=== PATIENT | female | born 1965 | race Caucasian/White ===

== ENCOUNTER → 2017-01-01 | Outpatient (CLI) | payer MEDICAID | LOC: WI 08:30 | PROVIDERS: ATTEND Family Medicine | DX: Z12.31 Encounter for screening mammogram for malignant neoplasm of breast (principal) | CPT/HCPCS: 77067; G0202 ==

== ENCOUNTER 2017-05-19 10:15 | Day surgery (SDC) | payer MEDICAID ==
[~2017-05-19 10:15] MED LIST: CHONDR SU A NA/HYALUR INTRAOC KIT (SURGICARE) ONE; EPINEPHRINE INJ/PF 1 MG/1 ML AMPULE ONE; KETOROLAC TROMETHAMINE 0.45% 4 DROP/0.4 ML DROPERETTE OD PRN; LACTATED RINGERS 1000 ML IV PRN; LIDOCAINE 0.5% INJ-PF (5 MG/ML) 50 ML SDV SUBCUT PRN; LIDOCAINE 1% INJ-PF (10 MG/ML) 30 ML SDV ONE; TOBRAMYCIN SULFATE/DEXAMETH OPH OINTMENT 3.5 GM ONE
[2017-05-19] MEDS: TETRACAINE HCL 0.5% OPH SOLN 0.6 ML DROPERETTE OD PRN ×3 (10:44→11:18)
[2017-05-19] MEDS: BESIFLOXACIN HCL 0.6% OPH SUSP 5 ML BOTTLE OD PRN ×3 (10:44→11:40)
[2017-05-19] MEDS: TROPICAMIDE 1% OPH SOLN 3 ML OD PRN ×3 (10:44→11:03)
[2017-05-19] MEDS: CYCLOPENTOLATE 0.2%/PHENYLEPHRINE 1% OPH SOLN 2 ML OD PRN ×3 (10:44→11:03)
[2017-05-19] MEDS ORDERED: LIDOCAINE 0.5% INJ-PF (5 MG/ML) 50 ML SDV ONE (10:56)
[2017-05-19] MEDS ORDERED: MIDAZOLAM 2 MG/2 ML INJ ONE (11:02)
[2017-05-19] MEDS ORDERED: FENTANYL CITRATE INJ/PF 100 MCG/2 ML AMPUL ONE (11:02)
== END 2017-05-19 12:35 | disposition home or self-care (01) ==
LOC: SC 10:15
PROVIDERS: ATTEND Ophthalmology
PROC: 08RK3JZ Replacement of Left Lens with Synthetic Substitute, Percutaneous Approach (ICD-10-PCS; principal; 2017-05-19 11:15)
DX: H25.11 Age-related nuclear cataract, right eye (principal); E11.9 Type 2 diabetes mellitus without complications; I10 Essential (primary) hypertension; F17.210 Nicotine dependence, cigarettes, uncomplicated; Z88.2 Allergy status to sulfonamides; Z79.82 Long term (current) use of aspirin; Z79.899 Other long term (current) drug therapy; Z79.1 Long term (current) use of non-steroidal anti-inflammatories (NSAID)
CPT/HCPCS: 82962; 66984; V2630; J2250; J3490 ×6; J0171; J3010; 142

== ENCOUNTER 2017-06-02 08:27 | Day surgery (SDC) | payer MEDICAID ==
[~2017-06-02 08:27] MED LIST changes: -KETOROLAC TROMETHAMINE 0.45% 4 DROP/0.4 ML DROPERETTE OD PRN; +KETOROLAC TROMETHAMINE 0.45% 4 DROP/0.4 ML DROPERETTE OS PRN; -LACTATED RINGERS 1000 ML IV PRN; +LIDOCAINE 0.5% INJ-PF (5 MG/ML) 50 ML SDV ONE; -LIDOCAINE 0.5% INJ-PF (5 MG/ML) 50 ML SDV SUBCUT PRN; +MIDAZOLAM 2 MG/2 ML INJ ONE
[2017-06-02] MEDS: CYCLOPENTOLATE 0.2%/PHENYLEPHRINE 1% OPH SOLN 2 ML OS PRN ×3 (08:42→09:02)
[2017-06-02] MEDS: TROPICAMIDE 1% OPH SOLN 3 ML OS PRN ×3 (08:42→09:02)
[2017-06-02] MEDS: BESIFLOXACIN HCL 0.6% OPH SUSP 5 ML BOTTLE OS PRN ×3 (08:42→09:27)
[2017-06-02] MEDS: TETRACAINE HCL 0.5% OPH SOLN 0.6 ML DROPERETTE OS PRN ×3 (08:43→09:10)
[2017-06-02] MEDS ORDERED: MIDAZOLAM 2 MG/2 ML INJ ONE (09:05)
[2017-06-02] MEDS ORDERED: LIDOCAINE 0.5% INJ-PF (5 MG/ML) 50 ML SDV SUBCUT PRN (13:33)
[2017-06-02] MEDS ORDERED: LACTATED RINGERS 1000 ML IV PRN (13:34)
== END 2017-06-02 10:10 | disposition home or self-care (01) ==
LOC: SC 08:27
PROVIDERS: ATTEND Ophthalmology
PROC: 08RK3JZ Replacement of Left Lens with Synthetic Substitute, Percutaneous Approach (ICD-10-PCS; principal; 2017-06-02 09:15)
DX: H25.12 Age-related nuclear cataract, left eye (principal); Z98.41 Cataract extraction status, right eye; F17.210 Nicotine dependence, cigarettes, uncomplicated; E11.9 Type 2 diabetes mellitus without complications; I10 Essential (primary) hypertension; F41.9 Anxiety disorder, unspecified; M46.90 Unspecified inflammatory spondylopathy, site unspecified; M19.90 Unspecified osteoarthritis, unspecified site; Z79.82 Long term (current) use of aspirin; Z79.1 Long term (current) use of non-steroidal anti-inflammatories (NSAID); Z79.899 Other long term (current) drug therapy; Z88.2 Allergy status to sulfonamides; Z86.14 Personal history of Methicillin resistant Staphylococcus aureus infection
CPT/HCPCS: 66984; 82962; V2630; J2250; J3490 ×6; J0171; 142

== ENCOUNTER 2018-03-17 23:28 | Inpatient (IN) | payer MEDICAID ==
[2018-03-18] MEDS ORDERED: OXYCODONE-ACETAMINOPHEN 5-325 MG TABLET PO ONE (00:51)
[2018-03-18] MEDS ORDERED: ONDANSETRON 4 MG TAB.RAPDIS PO ONE (00:51)
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
--- NOTE | 2018-03-18 02:47 | RADIOLOGY REPORT (SQ) ---
EXAM DESCRIPTION: XR FOOT 3 OR MORE VIEWS COMPLETED DATE/TME: 03/18/2018 00:50 CLINICAL HISTORY: 53 years Female, fall, pain COMPARISON: None. Findings: Moderate osteoarthritis of the left first interphalangeal joint, small plantar fascial enthesophyte, small osteophyte of the medial cuneiform medially at the navicular-cuneiform joint.. Bones, joints, and soft tissues of the XR L FOOT 4 VIEWS appear otherwise intact. IMPRESSION: No acute findings. Mild/moderate osteoarthritis medially.
--- NOTE | 2018-03-18 02:52 | RADIOLOGY REPORT (SQ) ---
EXAM DESCRIPTION: XR TIBIA FIBULA 2 VIEWS COMPLETED DATE/TME: 03/18/2018 00:50 CLINICAL HISTORY: 53 years, Female, fall, pain COMPARISON: None. NUMBER OF VIEWS: 4 LIMITATIONS: None. FINDINGS: Mild deformity of the proximal diametaphysis of the left fibula likely due to prior injury. No associated swelling. No knee effusion. Moderate fragmented osteophytes of the medial and lateral left knee compartments, 0.3 cm ossicular spotty at the lateral knee compartment, 0.3 cm avulsive fragment of the left lateral malleolus. No joint effusion of the knee. IMPRESSION: No acute findings. Mild likely chronic deformity of the proximal left fibula.
[2018-03-18 02:55] LABS: HEMATOCRIT 45.9 % (36.0-47.0); HEMOGLOBIN 15.5 g/dL (12.0-15.5); MEAN CORPUSCULAR HEMOGLOBIN 32.2 pg (27.0-33.4); MEAN CORPUSCULAR HGB CONC 33.7 g/dL (32.0-36.0); MEAN CORPUSCULAR VOLUME 96 fl (80-97); PLATELET COUNT 196 10^3/uL (150-450); RED CELL DISTRIBUTION WIDTH 12.9 % (11.5-14.0); WHITE BLOOD COUNT 22.9 10^3/uL (4.0-10.5)
[2018-03-18 03:05] LABS: ALANINE AMINOTRANSFERASE 14 U/L (9-52); ALBUMIN 5.2 g/dL (3.5-5.0); ALKALINE PHOSPHATASE 72 U/L (38-126); ANION GAP 19 (5-19); ASPARTATE AMINO TRANSFERASE 31 U/L (14-36); BILIRUBIN,DIRECT 0.3 mg/dL (0.0-0.4); BILIRUBIN,TOTAL 0.6 mg/dL (0.2-1.3); BLOOD UREA NITROGEN 13 mg/dL (7-20); C-REACTIVE PROTEIN 50.5 mg/L (<10.0); CALCIUM 10.6 mg/dL (8.4-10.2); CARBON DIOXIDE 25 mmol/L (22-30); CHLORIDE 105 mmol/L (98-107); GLUCOSE 145 mg/dL (75-110); POTASSIUM 3.5 mmol/L (3.6-5.0); TOTAL PROTEIN 9.6 g/dL (6.3-8.2)
[2018-03-18 03:13] LABS: ABSOLUTE LYMPHOCYTES# (MANUAL) 2.1 10^3/uL (0.5-4.7); ABSOLUTE MONOCYTES # (MANUAL) 1.4 10^3/uL (0.1-1.4); ABSOLUTE NEUTROPHILS# (MANUAL) 19.5 10^3/uL (1.7-8.2); BASOPHILS % (MANUAL) 0 % (0-2); EOSINOPHILS % (MANUAL) 0 % (0-6); LYMPHOCYTES % (MANUAL) 9 % (13-45); MONOCYTES % (MANUAL) 6 % (3-13); PLATELET COMMENT ADEQUATE; RBC MORPHOLOGY COMMENT NORMO-CYTIC/CHROMIC; SEGMENTED NEUTROPHILS % (MAN) 85 % (42-78); TOTAL CELLS COUNTED 100
[2018-03-18 03:30] LABS: ERYTHROCYTE SEDIMENTATION RATE 63 mm/hr (0-30)
[2018-03-18] MEDS ORDERED: NICOTINE 21 MG/24 HR PATCH.TD24 TD ONE (03:44)
[2018-03-18] MEDS ORDERED: CEFTRIAXONE 1 GM/D5W RTU 1 GM/50 ML RTUPB IV ONE (03:45)
[2018-03-18] MEDS ORDERED: VANCOMYCIN HCL INJ 1000 MG VIAL IV ONE (03:45)
[2018-03-18] MEDS ORDERED: CEFTRIAXONE INJ 1000 MG VIAL IV ONE (03:58)
[2018-03-18 04:34] LABS: APPEARANCE,URINE CLOUDY; BILIRUBIN,URINE NEGATIVE (NEGATIVE); COLOR,URINE AMBER; GLUCOSE, URINE >=500 mg/dL (NEGATIVE); KETONES,URINE TRACE mg/dL (NEGATIVE); LEUKOCYTE ESTERASE,URINE MODERATE (NEGATIVE); NITRITE,URINE NEGATIVE (NEGATIVE); PROTEIN,URINE >=500 mg/dL (NEGATIVE); URINE SPECIFIC GRAVITY 1.023
[2018-03-18] MEDS: NORMAL SALINE 1000 ML 1,000 ML IV PRN ×4 (05:01→23:29)
[2018-03-18] MEDS ORDERED: ALPRAZOLAM 0.5 MG TABLET PO ONE (05:23)
[2018-03-18] MEDS ORDERED: ACETAMINOPHEN 325 MG TABLET PO PRN (06:25)
[2018-03-18] MEDS ORDERED: IPRATROPIUM/ALBUTEROL 0.5-2.5 MG/3 ML AMPUL NEB PRN (06:25)
[2018-03-18] MEDS ORDERED: ONDANSETRON HCL INJ/PF 4 MG/2 ML SDV IV PRN (06:25)
[2018-03-18 06:36] LABS: VENOUS BLOOD BASE EXCESS -1.9 mmol/L; VENOUS BLOOD PCO2 39.7 mmHg (35-63); VENOUS BLOOD PH 7.38 (7.30-7.42)
--- NOTE | 2018-03-18 06:56 | PDOC H&P ---
History of Present Illness Admission Date/PCP: 03/18/18 05:14 VANCE SMITH DO Patient complains of: Fever, chills, left toe pain History of Present Illness: KASSIDY NESBTIT is a 53 year old female with past medical history of diabetes not currently on insulin, dyslipidemia, PVD who is active smoker presents with left middle toe pain as well as fever and chills. Patient reports that she stubbed her foot a few days ago and has noticed left toe pain and some swelling. Patient also reports fever and chills but denies any cough or urinary symptoms are chest pain or abdominal pain. On arrival to emergency room she was afebrile but tachycardic. Her laboratory workup shows white count of 20,000. His lactic acid was 3.8. UA shows UTI with positive leukocyte esterase and WBCs. X-ray of left foot shows changes of arthritis. Patient was given IV antibiotic and was referred to hospital for admission. Past Medical History Cardiac Medical History: Reports: Hyperlipidema, Peripheral Vascular Disease Denies: Coronary Artery Disease, Myocardial Infarction, Hypertension Pulmonary Medical History: Denies: Asthma, Bronchitis, Chronic Obstructive Pulmonary Disease (COPD), Pneumonia, Tuberculosis Neurological Medical History: Denies: Seizures Endocrine Medical History: Reports: Diabetes Mellitus Type 1 - with diabetic neuropathy, Diabetes Mellitus Type 2 - with diabetic neuropathy GI Medical History: Denies: Hepatitis, Hiatal Hernia Musculoskeltal Medical History: Denies: Arthritis Psychiatric Medical History: Reports: Depression Hematology: Denies: Anemia, Sickle Cell Disease Past Surgical History Past Surgical History: Reports: Orthopedic Surgery - LEFT FEMUR compound fx with femoral artery severed, compound pelvic fx, Tonsillectomy Denies: Amputation, Mastectomy, Pacemaker Social History Information Source: Patient Smoking Status: Current Every Day Smoker Frequency of Alcohol Use: None Hx Recreational Drug Use: No Hx Prescription Drug Abuse: No Family History Family History: DM Parental Family History Reviewed: No Children Family History Reviewed: No Sibling(s) Family History Reviewed.: No Medication/Allergy Home Medications: Alprazolam [Xanax] 2 mg PO TID 05/13/17 Aspirin [Aspirin EC] 81 mg PO DAILY 05/13/17 Aspirin/Acetaminophen/Caffeine [Goody's Ex-Str Powder Packet] 1 pkt PO DAILY PRN 05/13/17 Diphenoxylate HCl/Atropine [Lomotil Tablet] 1 each PO ASDIR PRN 05/13/17 Ibuprofen 600 mg PO BID PRN 05/13/17 Loperamide HCl [Imodium A-D] 4 mg PO ASDIR PRN 05/13/17 Meloxicam 15 mg PO DAILY 05/13/17 Oxycodone HCl 15 mg PO QID 05/13/17 Promethazine HCl [Phenergan 25 mg Tablet] 25 mg PO Q6 05/13/17 Allergies/Adverse Reactions: Sulfa (Sulfonamide Antibiotics) Allergy (Unknown, Verified 06/02/17 08:47) given as child,unknown reaction Review of Systems All systems: reviewed and no additional remarkable complaints except as stated Physical Exam Vital Signs: Temp Pulse Resp BP Pulse Ox 99.8 F 118 H 21 H 130/83 H 96 03/18/18 03:57 03/17/18 23:41 03/18/18 06:00 03/18/18 04:01 03/18/18 04:01 Intake & Output 03/16/18 03/17/18 03/18/18 06:59 06:59 06:59 Intake Total 1000 Balance 1000 General appearance: PRESENT: no acute distress, well-developed, well-nourished Head exam: PRESENT: atraumatic, normocephalic Eye exam: PRESENT: conjunctiva pink, EOMI, PERRLA. ABSENT: scleral icterus Mouth exam: PRESENT: moist, tongue midline Neck exam: ABSENT: carotid bruit, JVD, lymphadenopathy, thyromegaly Respiratory exam: PRESENT: clear to auscultation richard. ABSENT: rales, rhonchi, wheezes Cardiovascular exam: PRESENT: RRR, tachycardia. ABSENT: diastolic murmur, rubs , systolic murmur GI/Abdominal exam: PRESENT: normal bowel sounds, soft. ABSENT: distended, guarding, mass, organolmegaly, rebound, tenderness Rectal exam: PRESENT: deferred Gentrourinary exam: ABSENT: ecchymosis, erythema, lacerations, lesions, scrotal swelling, testicular tenderness, urethral discharge, indwelling catheter, other Extremities exam: PRESENT: full ROM. ABSENT: calf tenderness, clubbing, pedal edema Neurological exam: PRESENT: alert, awake, oriented to person, oriented to place , oriented to time, oriented to situation, CN II-XII grossly intact. ABSENT: motor sensory deficit Psychiatric exam: PRESENT: appropriate affect, normal mood. ABSENT: homicidal ideation, suicidal ideation Skin exam: PRESENT: rash - Patient with left middle toe chronic healing wound Results Laboratory Results: 03/18/18 06:20 VBG pH 7.38 VBG pCO2 39.7 VBG HCO3 23.0 VBG Base Excess -1.9 Labs reviewed Impressions: Foot X-Ray 03/18/18 00:50 IMPRESSION: No acute findings. Mild/moderate osteoarthritis medially. Tibia/Fibula X-Ray 03/18/18 00:50 IMPRESSION: No acute findings. Mild likely chronic deformity of the proximal left fibula. Status: Image reviewed by me Assessment & Plan - Diagnosis (1) UTI (urinary tract infection) Qualifiers: Urinary tract infection type: acute cystitis Hematuria presence: without hematuria Qualified Code(s): N30.00 - Acute cystitis without hematuria Is this a current diagnosis for this admission?: Yes Plan: Patient with fever and chills along with leukocytosis and elevated lactic acid with tachycardia; patient has UTI with sepsis. Patient is otherwise hemodynamically stable. Patient will be continued on broad-spectrum antibiotic. Follow-up urine culture and blood culture. (2) Sepsis Qualifiers: Sepsis type: sepsis due to unspecified organism Qualified Code(s): A41.9 - Sepsis, unspecified organism Is this a current diagnosis for this admission?: Yes Plan: Plan as mentioned above. (3) Diabetes 1.5, managed as type 2 Is this a current diagnosis for this admission?: No Plan: We will continue insulin sliding scale (4) Diabetic foot ulcer Is this a current diagnosis for this admission?: Yes Plan: I do not appreciate any signs of infection. Appears to be chronic healing wound. X-rays unremarkable as well. - Time Time Spent: 30 to 50 Minutes - Inpatient Certification Medical Necessity: Need For IV Fluids, Need for IV Antibiotics
[2018-03-18] MEDS ORDERED: DEXTROSE 40% GEL 15 GM TUBE X 2 PO PRN (08:42)
[2018-03-18] MEDS ORDERED: GLUCAGON,HUMAN RECOMB 1 MG INJ IM PRN (08:42)
[2018-03-18] MEDS ORDERED: DEXTROSE 50%-WATER SYRINGE 25 GM/50 ML DOSE IV PRN (08:42)
[2018-03-18] MEDS ORDERED: DEXTROSE 40% GEL 15 GM TUBE PO PRN (08:42)
[2018-03-18] MEDS ORDERED: DEXTROSE 50%-WATER SYRINGE 12.5 GM/25 ML DOSE IV PRN (08:42)
[2018-03-18] MEDS: INSULIN LISPRO 100 UNIT/ML 3 ML VIAL SUBCUT PRN ×3 (09:02→23:42)
[2018-03-18] MEDS ORDERED: VANCOMYCIN HCL INJ 1000 MG VIAL IV SCH (10:00)
[2018-03-18] MEDS: ENOXAPARIN SODIUM INJ 40 MG/0.4 ML DISP.SYRIN SUBCUT SCH (10:19)
[2018-03-18] MEDS: PIPERACILLIN SODIUM/TAZOBACTAM 3.375 GM in NORMAL SALINE 100 ML IV SCH ×2 (13:07→17:57)
--- NOTE | 2018-03-18 14:09 | PDOC PROGRESS REPORT ---
Subjective Progress Note for:: 03/18/18 Reason For Visit: DIABETIC FOOT INFECTION Physical Exam Vital Signs: Temp Pulse Resp BP Pulse Ox 98.3 F 92 14 113/68 99 03/18/18 09:06 03/18/18 11:05 03/18/18 11:05 03/18/18 09:06 03/18/18 11:05 Intake & Output 03/17/18 03/18/18 03/19/18 06:59 06:59 06:59 Intake Total 1000 1473 Balance 1000 1473 Results Laboratory Results: 03/18/18 03/18/18 06:20 06:20 VBG pH 7.38 VBG pCO2 39.7 VBG HCO3 23.0 VBG Base Excess -1.9 Lactic Acid 3.2 H Impressions: Foot X-Ray 03/18/18 00:50 IMPRESSION: No acute findings. Mild/moderate osteoarthritis medially. Tibia/Fibula X-Ray 03/18/18 00:50 IMPRESSION: No acute findings. Mild likely chronic deformity of the proximal left fibula.
[2018-03-18] MEDS: VANCOMYCIN HCL 750 MG in DEXTROSE 5%-WATER 250 ML IV SCH (14:15)
--- NOTE | 2018-03-18 14:40 | Progress Note ---
Provider Note Provider Note: Patient admitted earlier this morning around 5 a.m. by the nuctunist. H&P reviewed and patient seen and evaluated. She has no new complaints at this time , no fever or chills. We will continue management.
[2018-03-18] MEDS ORDERED: PROMETHAZINE HCL 25 MG TABLET PO PRN (19:11)
[2018-03-18] MEDS: GABAPENTIN 300 MG CAPSULE PO SCH (21:09)
[2018-03-18] MEDS: ALPRAZOLAM 0.5 MG TABLET PO SCH (21:09)
[2018-03-18] MEDS: OXYCODONE HCL IR 5 MG TABLET PO SCH (23:30)
[2018-03-19] MEDS: VANCOMYCIN HCL 750 MG in DEXTROSE 5%-WATER 250 ML IV SCH ×2 (01:32→10:31)
[2018-03-19] MEDS: PIPERACILLIN SODIUM/TAZOBACTAM 3.375 GM in NORMAL SALINE 100 ML IV SCH ×4 (02:24→17:41)
[2018-03-19 06:09] LABS: ABSOLUTE BASOPHILS # (AUTO) 0.1 10^3/uL (0.0-0.2); ABSOLUTE EOSINOPHILS # (AUTO) 0.3 10^3/uL (0.0-0.6); ABSOLUTE LYMPHOCYTES (AUTO) 4.1 10^3/uL (0.5-4.7); ABSOLUTE MONOCYTES (AUTO) 0.6 10^3/uL (0.1-1.4); ABSOLUTE NEUT (AUTO) 5.6 10^3/uL (1.7-8.2); BASOPHILS % (AUTO) 0.6 % (0-2); EOSINOPHILS % (AUTO) 3.2 % (0-6); HEMATOCRIT 36.8 % (36.0-47.0); LYMPHOCYTES % (AUTO) 38.2 % (13-45); MEAN CORPUSCULAR HEMOGLOBIN 32.8 pg (27.0-33.4); MEAN CORPUSCULAR HGB CONC 34.4 g/dL (32.0-36.0); MEAN CORPUSCULAR VOLUME 95 fl (80-97); MONOCYTES % (AUTO) 5.8 % (3-13); PLATELET COUNT 134 10^3/uL (150-450); RED BLOOD COUNT 3.86 10^6/uL (3.72-5.28); RED CELL DISTRIBUTION WIDTH 12.8 % (11.5-14.0); SEGMENTED NEUTROPHILS % (AUTO) 52.2 % (42-78); TOTAL CELLS COUNTED % (AUTO) 100 %; WHITE BLOOD COUNT 10.7 10^3/uL (4.0-10.5)
[2018-03-19 06:11] LABS: ANION GAP 10 (5-19); BLOOD UREA NITROGEN 15 mg/dL (7-20); CALCIUM 8.4 mg/dL (8.4-10.2); CARBON DIOXIDE 23 mmol/L (22-30); CHLORIDE 114 mmol/L (98-107); GLUCOSE 143 mg/dL (75-110); POTASSIUM 3.5 mmol/L (3.6-5.0); SODIUM 146.9 mmol/L (137-145)
[2018-03-19 06:15] LABS: VANCOMYCIN,TROUGH 10.2 ug/mL (5.0-20.0)
[2018-03-19] MEDS: OXYCODONE HCL IR 5 MG TABLET PO SCH ×4 (06:27→23:09)
[2018-03-19] MEDS: ALPRAZOLAM 0.5 MG TABLET PO SCH ×3 (06:27→23:04)
[2018-03-19] MEDS: GABAPENTIN 300 MG CAPSULE PO SCH ×3 (06:28→23:03)
[2018-03-19 06:48] LABS: HEMOGLOBIN 12.6 g/dL (12.0-15.5)
[2018-03-19] MEDS: INSULIN LISPRO 100 UNIT/ML 3 ML VIAL SUBCUT PRN ×2 (08:29→17:43)
[2018-03-19] MEDS: MELOXICAM 15 MG TABLET PO SCH (10:34)
[2018-03-19] MEDS: ENOXAPARIN SODIUM INJ 40 MG/0.4 ML DISP.SYRIN SUBCUT SCH (10:37)
[2018-03-19] MEDS ORDERED: VANCOMYCIN HCL 1,000 MG in DEXTROSE 5%-WATER 250 ML IV SCH (14:00)
[2018-03-19] MEDS ORDERED: NICOTINE 14 MG/24 HR PATCH.TD24 TD ONE (18:00)
--- NOTE | 2018-03-19 18:02 | PDOC PROGRESS REPORT ---
Subjective Progress Note for:: 03/19/18 Subjective:: Patient initially presented with fever and chills. She was admitted and treated for possibly urinary tract infection. No acute event overnight. No recurrence of fever chills. She she is concerned about a 2 infection on right foot, at the middle toe. There is no open lesion, wound, erythema or tenderness. She does have a scar on the areawhich appears to be chronic and healing. Reason For Visit: DIABETIC FOOT INFECTION Physical Exam Vital Signs: Temp Pulse Resp BP Pulse Ox 97.9 F 88 16 139/65 H 100 03/19/18 11:31 03/19/18 14:00 03/19/18 11:31 03/19/18 11:31 03/19/18 11:31 Intake & Output 03/18/18 03/19/18 03/20/18 06:59 06:59 06:59 Intake Total 1000 3263 923 Balance 1000 3263 923 Weight 172 lb 9.951 oz General appearance: PRESENT: no acute distress, well-developed, well-nourished Eye exam: PRESENT: conjunctiva pink, EOMI, PERRLA. ABSENT: scleral icterus Neck exam: ABSENT: carotid bruit, JVD, lymphadenopathy, thyromegaly Respiratory exam: PRESENT: clear to auscultation richard. ABSENT: rales, rhonchi, wheezes Cardiovascular exam: PRESENT: RRR. ABSENT: diastolic murmur, rubs, systolic murmur Pulses: PRESENT: normal dorsalis pedis pul Vascular exam: PRESENT: normal capillary refill GI/Abdominal exam: PRESENT: normal bowel sounds, soft. ABSENT: distended, guarding, mass, organolmegaly, rebound, tenderness Rectal exam: PRESENT: deferred Musculoskeletal exam: PRESENT: other - No gross abnormalities on examination of the feet and toes, note of a scab on the plantar aspect of the middle toe on the right foot, there is no erythema, tenderness, open lesion or wound. No signs of infection. No drainage or discharge. Neurological exam: PRESENT: alert, awake, oriented to person, oriented to place , oriented to time, oriented to situation, CN II-XII grossly intact. ABSENT: motor sensory deficit Results Laboratory Results: 03/19/18 05:46 03/19/18 05:46 08/04/18 08/04/18 05:46 05:46 WBC 10.7 H RBC 3.86 Hgb 12.6 D Hct 36.8 MCV 95 MCH 32.8 MCHC 34.4 RDW 12.8 Plt Count 134 L Seg Neutrophils % 52.2 Lymphocytes % 38.2 Monocytes % 5.8 Eosinophils % 3.2 Basophils % 0.6 Absolute Neutrophils 5.6 Absolute Lymphocytes 4.1 Absolute Monocytes 0.6 Absolute Eosinophils 0.3 Absolute Basophils 0.1 Sodium 146.9 H Potassium 3.5 L Chloride 114 H Carbon Dioxide 23 Anion Gap 10 BUN 15 Creatinine 0.48 L Est GFR ( Amer) > 60 Est GFR (Non-Af Amer) > 60 Glucose 143 H Calcium 8.4 Impressions: Foot X-Ray 03/18/18 00:50 IMPRESSION: No acute findings. Mild/moderate osteoarthritis medially. Tibia/Fibula X-Ray 03/18/18 00:50 IMPRESSION: No acute findings. Mild likely chronic deformity of the proximal left fibula. Assessment & Plan - Diagnosis (1) UTI (urinary tract infection) Qualifiers: Urinary tract infection type: acute cystitis Hematuria presence: without hematuria Qualified Code(s): N30.00 - Acute cystitis without hematuria Is this a current diagnosis for this admission?: Yes Plan: Urine culture grew gram-negative rods so far. We will await final results of the culture sensitivity. Discontinue vancomycin and Zosyn. De-escalate to Rocephin. (2) Diabetes mellitus Is this a current diagnosis for this admission?: Yes Plan: Continue insulin sliding scale. (3) Tobacco abuse Is this a current diagnosis for this admission?: Yes Plan: Counseled on smoking cessation. Will add nicotine patches. - Time Time Spent with patient: 25-34 minutes
[2018-03-20] MEDS: GABAPENTIN 300 MG CAPSULE PO SCH (06:20)
[2018-03-20] MEDS: ALPRAZOLAM 0.5 MG TABLET PO SCH ×2 (07:21→13:37)
[2018-03-20] MEDS: OXYCODONE HCL IR 5 MG TABLET PO SCH ×2 (07:21→11:44)
[2018-03-20] MEDS ORDERED: CEFTRIAXONE 1 GM/D5W RTU 1 GM/50 ML RTUPB IV SCH (10:00)
[2018-03-20] MEDS ORDERED: CEFTRIAXONE SODIUM 1,000 MG in DEXTROSE 5%-WATER 50 ML IV SCH (10:00)
[2018-03-20] MEDS ORDERED: NICOTINE 14 MG/24 HR PATCH.TD24 TD SCH (10:00)
--- NOTE | 2018-03-20 11:16 | PDOC DISCHARGE SUMMARY ---
General - Admit/Disc Date/PCP Admission Date/Primary Care Provider: 03/18/18 05:14 VANCE SMITH DO Discharge Date: 03/20/18 - Discharge Diagnosis (1) UTI (urinary tract infection) Is this a current diagnosis for this admission?: Yes (2) Diabetes mellitus Is this a current diagnosis for this admission?: Yes (3) Tobacco abuse Is this a current diagnosis for this admission?: Yes - Additional Information Resuscitation Status: Full Code Discharge Diet: As Tolerated Prescriptions: Ciprofloxacin HCl [Cipro 500 mg Tablet] 500 mg PO BID 5 Days #20 tablet Home Medications: Alprazolam [Xanax] 2 mg PO Q8 03/18/18 Aspirin [Ecotrin 81 mg EC Tablet] 81 mg PO DAILY 03/18/18 Diphenoxylate HCl/Atrop Sulf [Lomotil 2.5 mg Tablet] 2 tab PO QIDP PRN 03/18/18 Gabapentin [Neurontin 300 mg Capsule] 300 mg PO Q8 03/18/18 Meloxicam [Mobic] 15 mg PO DAILY 03/18/18 Ciprofloxacin HCl [Cipro 500 mg Tablet] 500 mg PO BID 5 Days #20 tablet History of Present Illness History of Present Illness: KASSIDY NESBITT is a 53 year old female with past medical history of diabetes not currently on insulin, dyslipidemia, PVD who is active smoker presents with left middle toe pain as well as fever and chills. Patient reports that she stubbed her left foot a 3 days ago and has noticed left middle toe pain. Patient also reports fever and chills but denies any cough or urinary symptoms are chest pain or abdominal pain. On arrival to emergency room she was afebrile but tachycardic. Her laboratory workup shows white count of 20,000. UA shows UTI with positive leukocyte esterase and WBCs. X-ray of left foot shows changes of arthritis. Patient was given IV antibiotic and was admitted for further work-up and management. Hospital Course Hospital Course: Patient was initially admitted for UTI and possible infected wound in the middle toe of the left foot. Upon reexamination, there are no signs of infection, there is no erythema, swelling or tenderness, there is no drainage or open wound. Patient has a scab over healing wound on the plantar aspect of the middle toe on the left foot. It appears to be that the patient sustained a small laceration which has healed but a scab has developed around the area which makes the patient uncomfortable upon stepping or walking. She was initially started on broad-spectrum IV antibiotics. This was the escalated as deemed appropriate. Her urine culture grew Citrobacter which was resistant to a few antibiotics. This was sensitive to Bactrim but patient has allergy to sulfa antibiotics. Her WBC count significantly improved overnight. She did not have recurrence of fever. She will be sent home on oral ciprofloxacin, for 5 more days, to which the isolate is sensitive. Patient was advised to see a manager stars on outpatient basis to help with scab removal as it appears to be the issue making her uncomfortable when she steps on it. She was advised to keep the area clean and not to put pressure on the healing wound so as to hasten wound healing. Physical Exam Vital Signs: Temp Pulse Resp BP Pulse Ox 98.0 F 88 20 163/83 H 100 03/20/18 07:27 03/20/18 07:27 03/20/18 07:27 03/20/18 07:27 03/20/18 07:27 Intake & Output 03/19/18 03/20/18 03/21/18 06:59 06:59 06:59 Intake Total 3263 2138 Balance 3263 2138 Weight 172 lb 9.951 oz 169 lb 15.622 oz General appearance: PRESENT: no acute distress, well-developed, well-nourished Eye exam: PRESENT: conjunctival injection Neck exam: ABSENT: carotid bruit, JVD, lymphadenopathy, thyromegaly Respiratory exam: PRESENT: clear to auscultation richard. ABSENT: rales, rhonchi, wheezes Cardiovascular exam: PRESENT: RRR. ABSENT: diastolic murmur, rubs, systolic murmur Pulses: PRESENT: normal dorsalis pedis pul GI/Abdominal exam: PRESENT: normal bowel sounds, soft. ABSENT: distended, guarding, mass, organolmegaly, rebound, tenderness Rectal exam: PRESENT: deferred Extremities exam: PRESENT: other - Patient has a scab over a healing wound (<1 cm) on the plantar aspect of the middle toe on the left foot. No signs of infection, there is no erythema, swelling or tenderness, there is no drainage or open wound. Neurological exam: PRESENT: alert, awake, oriented to person, oriented to place , oriented to time, oriented to situation, CN II-XII grossly intact. ABSENT: motor sensory deficit Focused psych exam: PRESENT: other - Patient appears anxious as her fianc who was visiting her was just transferred to the ER on day of discharge after he developed shortness of breath (which appears to be a possible asthma exacerbation) Results Laboratory Results: 03/19/18 05:46 03/19/18 05:46 03/20/18 10:26 Lactic Acid 1.9 Impressions: Foot X-Ray 03/18/18 00:50 IMPRESSION: No acute findings. Mild/moderate osteoarthritis medially. Tibia/Fibula X-Ray 03/18/18 00:50 IMPRESSION: No acute findings. Mild likely chronic deformity of the proximal left fibula. Qualifiers - * PATIENT BEING DISCHARGED WITH ANY OF THE FOLLOWING DIAGNOSIS: No
[2018-03-20] MEDS: ENOXAPARIN SODIUM INJ 40 MG/0.4 ML DISP.SYRIN SUBCUT SCH (11:26)
[2018-03-20] MEDS: MELOXICAM 15 MG TABLET PO SCH (11:38)
[2018-03-20] MEDS: INSULIN LISPRO 100 UNIT/ML 3 ML VIAL SUBCUT PRN (11:43)
[2018-03-20] MEDS ORDERED: CIPROFLOXACIN HCL 500 MG TABLET PO ONE (12:30)
[2018-03-20 15:10] VITALS: BP 178/86
== END 2018-03-20 15:00 | disposition home or self-care (01) | DRG 690 ==
LOC: ER 23:28 → EH 03-18 05:14 → 3W 03-18 07:11
PROVIDERS: ADMIT Internal Medicine; ATTEND Internal Medicine
DX: N39.0 Urinary tract infection, site not specified (principal); S99.822A Other specified injuries of left foot, initial encounter; W22.8XXA Striking against or struck by other objects, initial encounter; E78.5 Hyperlipidemia, unspecified; E11.51 Type 2 diabetes mellitus with diabetic peripheral angiopathy without gangrene; B96.89 Other specified bacterial agents as the cause of diseases classified elsewhere; F17.200 Nicotine dependence, unspecified, uncomplicated; Z16.20 Resistance to unspecified antibiotic; M19.90 Unspecified osteoarthritis, unspecified site; F41.9 Anxiety disorder, unspecified; Z87.81 Personal history of (healed) traumatic fracture; Z86.14 Personal history of Methicillin resistant Staphylococcus aureus infection; Z83.3 Family history of diabetes mellitus; Z79.82 Long term (current) use of aspirin; Z79.899 Other long term (current) drug therapy; Z88.2 Allergy status to sulfonamides
CPT/HCPCS: 36415; 80048; 80053; 80202; 81001; 82803; 82962; 83605; 85025; 85652; 86140; 87040; 87077; 87086; 87088; 87186; J0696; J1650; J1815; J2543; J3370; J7030; J7060; S0119